=== PATIENT | male | born 1975 | race African-American/Black ===

== ENCOUNTER 2018-04-20 22:37 | Inpatient (IN) | payer OTHER ==
[~2018-04-20] VITALS: Ht 188 cm; Wt 121.0 kg
[2018-04-20] MEDS ORDERED: SODIUM CHLORIDE 0.9% 1L BAG IV* STA (23:08)
[2018-04-21] MEDS ORDERED: PIPER-TAZO 3.375 GM IV (PMX) 100 ML IVPB ONE (02:00)
--- NOTE | 2018-04-21 03:29 | ERD ---
ER Documentation Chief Complaint Chief Complaint Bilateral leg swelling, insect bites to L lower Leg and L hip X 1 wk ago HPI Is a 42-year-old male with bilateral lower extremity swelling to the midcalf that started last week and is getting progressively worse. He says started off his antiplatelet scratch and get progressively more swollen. Denies any fevers or chills. Denies any nausea vomiting. Denies any other current issues. ROS All systems reviewed and are negative except as per history of present illness. Allergies Allergies: Coded Allergies: No Known Allergy (Unverified , 04/20/18) PMhx/Soc Medical and Surgical Hx: pt denies Medical Hx, pt denies Surgical Hx Hx Alcohol Use: No Hx Substance Use: No Hx Tobacco Use: No Smoking Status: Never smoker Physical Exam Vitals Vital Signs Date Temp Pulse Resp B/P (MAP) Pulse Ox O2 O2 Flow FiO2 Time Delivery Rate 04/21/18 97.7 75 16 141/95 100 Room Air 02:59 (110) 04/21/18 97.7 83 15 147/99 100 Room Air 01:49 (115) 04/21/18 97.7 84 15 129/80 100 Room Air 01:05 (96) 04/21/18 97.7 85 18 143/97 100 Room Air 00:33 (112) 04/20/18 97.7 95 18 152/84 100 Room Air 23:28 (106) 04/20/18 97.7 106 18 152/68 97 22:40 (96) Physical Exam Const: No acute distress Head: Atraumatic Eyes: Normal Conjunctiva ENT: Normal External Ears, Nose and Mouth. Neck: Full range of motion. No meningismus. Resp: Clear to auscultation bilaterally Cardio: Regular rate and rhythm, no murmurs Abd: Soft, non tender, non distended. Normal bowel sounds Skin: Erythema and induration noted to the midcalf bilaterally. No flu ctuance. Back: No midline or flank tenderness Ext: No cyanosis, or edema Neur: Awake and alert Psych: Normal Mood and Affect Result Diagram: 04/20/18 6899 04/20/18 1771 Results 24 hrs Laboratory Tests Test 04/20/18 23:25 04/21/18 01:05 White Blood Count 8.1 10^3/ul Red Blood Count 4.41 10^6/ul Hemoglobin 11.8 g/dl Hematocrit 36.8 % Mean Corpuscular Volume 83.4 fl Mean Corpuscular Hemoglobin 26.8 pg Mean Corpuscular Hemoglobin Concent 32.1 g/dl Red Cell Distribution Width 14.3 % Platelet Count 299 10^3/UL Mean Platelet Volume 9.5 fl Immature Granulocytes % 0.100 % Neutrophils % 62.6 % Lymphocytes % 27.2 % Monocytes % 7.1 % Eosinophils % 2.1 % Basophils % 0.9 % Nucleated Red Blood Cells % 0.0 /100WBC Immature Granulocytes # 0.010 10^3/ul Neutrophils # 5.1 10^3/ul Lymphocytes # 2.2 10^3/ul Monocytes # 0.6 10^3/ul Eosinophils # 0.2 10^3/ul Basophils # 0.1 10^3/ul Nucleated Red Blood Cells # 0.0 10^3/ul Prothrombin Time 12.0 Sec Prothrombin Time Ratio 0.9 INR International Normalized Ratio 0.88 Activated Partial Thromboplast Time 30.3 Sec Sodium Level 141 mmol/L Potassium Level 3.9 mmol/L Chloride Level 104 mmol/L Carbon Dioxide Level 27 mmol/L Anion Gap 10 Blood Urea Nitrogen 19 mg/dl Creatinine 1.14 mg/dl Est Glomerular Filtrat Rate mL/min > 60 mL/min Glucose Level 108 mg/dl Calcium Level 9.3 mg/dl Total Bilirubin 0.1 mg/dl Direct Bilirubin 0.00 mg/dl Indirect Bilirubin 0.1 mg/dl Aspartate Amino Transf (AST/SGOT) 41 IU/L Alanine Aminotransferase (ALT/SGPT) 37 IU/L Alkaline Phosphatase 108 IU/L Troponin I < 0.012 ng/ml Total Protein 7.9 g/dl Albumin 4.1 g/dl Globulin 3.80 g/dl Albumin/Globulin Ratio 1.07 Lactic Acid Level 0.8 mmol/L Current Medications Medications Dose Sig/Mis Start Time Status Last (Trade) Ordered Route PRN Stop Time Admin Dose Reason Admin Sodium 3,600 ml BOLUS OVER 2 04/20/18 DC 04/20/18 Chloride HOURS STAT 23:08 04/20/18 23:28 (NS) IV* 23:09 Piperacillin 100 ml @ ONCE ONCE 04/21/18 DC 04/21/18 Sod/ 200 mls/hr IVPB 02:00 04/21/18 01:54 Tazobactam 02:29 Sod Procedures/MDM EKG: Rate/Rhythm: [Normal Sinus Rhythm] QRS, ST, T-waves: [No changes consistent w/ acute ischemia] Impression: [No evidence of ischemia or arrhythmia] Chest X-ray 1V Interpreted by me: Soft Tissue: No acute abnormalities Bones: No acute abnormalities Mediastinum/Cardiac Silhouette/Lungs: [No acute abnormalities] Medical decision makin-year-old male bilateral lower extremity cellulitis with no evidence of sepsis. Started on broad-spectrum antibiotics post cultures. Patient will be admitted to hospitalist for further evaluation management. Departure Diagnosis: Primary Impression: Bilateral lower leg cellulitis Condition: LORENA Simms Apr 21, 2018 03:29
[2018-04-21 03:30] VITALS: BP 134/82; PULSE 75; RESP 18
[2018-04-21 03:33] VITALS: Ht 188 cm; Wt 121.0 kg
[2018-04-21] MEDS ORDERED: ONDANSETRON 4 MG INJ IV PRN (04:30)
[2018-04-21] MEDS ORDERED: ACETAMINOPHEN 325 MG TAB PO PRN (04:30)
[2018-04-21] MEDS ORDERED: NACL 0.9% 3 ML SYG IV SCH (04:30)
[2018-04-21] MEDS ORDERED: ALBUTEROL/IPRATROPIUM (NEB) 3 ML AMP HHN PRN (04:30)
--- NOTE | 2018-04-21 06:03 | HP ---
Date/Time of Note Date/Time of Note DATE: 04/21/18 TIME: 05:58 Assessment/Plan VTE Prophylaxis Pharmacological prophylaxis: heparin Lines/Catheters IV Catheter Type (from Nrsg): Saline Lock Assessment/Plan Assessment/Plan 42-year-old obese male with no significant past medical history presented with bilateral lower extremity pitting edema, with possible overlying erysipelas PLAN Obtain a 2D echo to workup for CHF We will diurese Will start him on a Bactrim for possible bilateral lower extremity erysipelas. Skin was very warm to touch with few minimal superficial lesions on the medial aspect of the right leg Result Diagram: 04/21/18 0426 04/21/18 0426 Results 24hrs Laboratory Tests Test 04/20/18 23:25 04/21/18 01:05 04/21/18 02:42 04/21/18 04:26 White Blood Count 8.1 6.2 # Red Blood Count 4.41 L 4.05 L Hemoglobin 11.8 L 11.3 L Hematocrit 36.8 L 34.6 L Mean Corpuscular Volume 83.4 85.4 Mean Corpuscular 26.8 L 27.9 L Hemoglobin Mean Corpuscular 32.1 32.7 Hemoglobin Concent Red Cell Distribution 14.3 14.5 Width Platelet Count 299 253 Mean Platelet Volume 9.5 9.5 Immature Granulocytes % 0.100 0.300 Neutrophils % 62.6 57.1 Lymphocytes % 27.2 30.7 Monocytes % 7.1 8.1 Eosinophils % 2.1 3.2 Basophils % 0.9 0.6 Nucleated Red Blood 0.0 0.0 Cells % Immature Granulocytes # 0.010 0.020 Neutrophils # 5.1 3.5 Lymphocytes # 2.2 1.9 Monocytes # 0.6 0.5 Eosinophils # 0.2 0.2 Basophils # 0.1 0.0 Nucleated Red Blood 0.0 0.0 Cells # Prothrombin Time 12.0 Prothrombin Time Ratio 0.9 INR International 0.88 Normalized Ratio Activated 30.3 Partial Thromboplast Time Sodium Level 141 140 Potassium Level 3.9 4.0 Chloride Level 104 111 H Carbon Dioxide Level 27 24 Anion Gap 10 5 Blood Urea Nitrogen 19 15 Creatinine 1.14 0.94 Est Glomerular Filtrat > 60 > 60 Rate mL/min Glucose Level 108 88 Calcium Level 9.3 8.6 Total Bilirubin 0.1 L 0.1 L Direct Bilirubin 0.00 0.00 Indirect Bilirubin 0.1 0.1 Aspartate Amino 41 36 Transf (AST/SGOT) Alanine 37 30 Aminotransferase (ALT/SG PT) Alkaline Phosphatase 108 104 Troponin I < 0.012 < 0.012 Total Protein 7.9 6.6 # Albumin 4.1 3.4 Globulin 3.80 H 3.20 Albumin/Globulin Ratio 1.07 1.06 Lactic Acid Level 0.8 0.9 Hemoglobin A1c 5.7 Phosphorus Level 4.3 Magnesium Level 2.2 Creatine Kinase 703 H Creatine Kinase Index 0.2 Creatinine Kinase MB 1.33 (Mass) Triglycerides Level 135 Cholesterol Level 149 LDL Cholesterol, 89 Calculated HDL Cholesterol 33 Cholesterol/HDL Ratio 4.5 Thyroid Stimulating Pending Hormone (TSH) HPI/ROS Admit Date/Time Admit Date/Time Apr 21, 2018 at 01:45 Hx of Present Illness This is a 42-year-old male with no significant past medical history who presented to ER complaining of bilateral lower extremity swelling. Symptom has been progressively getting worse. He said his legs have been warm to touch. He also stated he may have been bitten by a spider. Based on his mother's recommendation, patient has been taking [id number]-[id number] "water pill". He said he did not need prescription and said he paid 4.99 for 50 pills. The medication did increase his urine output. He denies chest pain, reported occasional shortness of breath on exertion. Denied fever/chills, abdominal pain. PMH/Family/Social Past Medical History Medical History: other (See HPI) Medications Current Medications IV Flush (NS 3 ml) 3 ml PER PROTOCOL IV ; Start 04/21/18 at 04:30 Ondansetron HCl (Zofran Inj) 4 mg Q6H PRN IV NAUSEA/VOMITING; Start 04/21/18 at 04:30 Acetaminophen (Tylenol Tab) 650 mg Q6H PRN PO .PAIN 1-3 OR TEMP; Start 04/21/18 at 04:30 Enoxaparin Sodium (Lovenox) 40 mg DAILY SC ; Start 04/21/18 at 09:00 Albuterol/ Ipratropium (Duoneb) 3 ml Q2H RESP THERAPY PRN HHN SHORTNESS OF BREATH; Start 04/21/18 at 04:30 Trimethoprim/ Sulfamethoxazole (Bactrim (Ds)) 1 tab BID PO ; Start 04/21/18 at 09:00; Stop 04/26/18 at 09:00 Furosemide (Lasix) 40 mg DAILY PO ; Start 04/21/18 at 09:00 Coded Allergies: No Known Allergy (Unverified , 04/20/18) Past Surgical History Past Surgical Hx: other (See HPI) Family History Significant Family History: no pertinent family hx Social History Alcohol Use: none Smoking Status: Current every day smoker Drug Use: none Exam/Review of Systems Vital Signs Vitals Vital Signs Date Temp Pulse Resp B/P (MAP) Pulse Ox O2 O2 Flow FiO2 Time Delivery Rate 04/21/18 98.7 75 18 134/82 99 Room Air 03:30 (99) Exam Constitutional: alert, oriented, well developed Head: normocephalic, atraumatic Eyes: EOMI, PERRL Respiratory: clear to auscultation, normal air movement Cardiovascular: regular rate and rhythm, nl pulses Gastrointestinal: soft, non-tender Extremities: other (Bilateral lower extremity pitting edema. Skin is warm to touch. A few superficial lesions on the medial aspect of the right calf) LORENA BECERRIL MD Apr 21, 2018 06:03
[2018-04-21 07:25] VITALS: BP 133/74; PULSE 76; RESP 18
[2018-04-21] MEDS ORDERED: FUROSEMIDE 40 MG TAB PO SCH (09:00)
[2018-04-21] MEDS ORDERED: TRIMETHOPRIM/SULFAMETHOX (DS) TAB PO SCH (09:00)
[2018-04-21] MEDS ORDERED: ENOXAPARIN 40 MG/0.4 ML SYG SC SCH (09:00)
[2018-04-21 14:01] VITALS: BP 138/84; PULSE 77; RESP 18
--- NOTE | 2018-04-21 15:31 | PDOCDIS ---
Discharge Instructions CONDITION [id number] Patient Condition: [id number] Stable OTHER ORDERS: Other Orders: The patient being transferred to [facility] for further evaluation. ELLIOT LEIVA NP Apr 21, 2018 15:31
--- NOTE | 2018-04-21 17:58 | DS ---
Date/Time of Note Date/Time of Note DATE: 04/21/18 TIME: 17:54 Discharge Summary Admission/Discharge Info Admit Date/Time Apr 21, 2018 at 01:45 Discharge Date/Time Discharge Diagnosis 1. Erysipelas. 2. Normocytic anemia. 3. Reported "bug bite." 4. Obesity. 5. Nicotine use. Patient Condition: Stable Procedures B/L Venous Doppler Study IMPRESSION: No sonographic evidence for deep venous thrombosis. CXR IMPRESSION: No evidence for acute intrathoracic pathology. 2D Echocardiogram Hx of Present Illness This is a 42-year-old male with comorbidities including obesity, who presented to the emergency department complaining of bilateral lower extremity edema. The patient also verbalized some "bug bites." The patient also verbalized that his roommates possibly had "typhus" from tick bite. The patient tried using shfi-unu-akguakl "water pills" with minimal improvement in the swelling. The patient denied any fevers or chills. The patient was admitted to inpatient setting for further treatment and evaluation. Hospital Course The patient was admitted to inpatient setting. The patient was started on antimicrobial therapy including coverage for MRSA for possible underlying erysipelas. The patient was started on diuretic therapy for his underlying bilateral lower extremity edema. The patient's bilateral lower extremity venous Doppler study was negative for any DVT. The patient had a 2D echocardiogram done to evaluate for any underlying cardiac involvement. The results of this is pending at this time. Nevertheless, the patient's BNP was within normal limits. The patient was also noticed to have normocytic anemia. The patient's H&H remained stable. Etiology of the patient's anemia remains unclear. The patient is also morbidly obese with BMI of more than 34 kg/m. The patient's fasting lipid panel was satisfactory. The patient's hemoglobin A1c was 5.7 indicating prediabetes. The patient is also a current nicotine user. The patient was advised on nicotine cessation. The patient is capitated to [facility]. Therefore, the patient will be transferred to [facility] for further management. Signout was given to Dr. Bartlett at [facility] before the patient was transferred. The patient is stable to be transferred. The patient was seen in collaboration with Dr. Salazar. Home Meds No Active Prescriptions or Reported Meds Primary Care Provider The patient being transferred to [facility] for further managment. Time spent on discharge: > 30 minutes Pending Labs Laboratory Tests Test 04/20/18 23:25 04/21/18 01:05 04/21/18 02:42 04/21/18 04:23 White Blood 8.1 Count 10^3/ul (4.8-10 .8) Red Blood 4.41 Count 10^6/ul (4.70-6 .10) Hemoglobin 11.8 g/dl (14.0-18.0 ) Hematocrit 36.8 % (42.0-52.0) Mean 83.4 Corpuscular fl (82.0-101.0) Volume Mean 26.8 Corpuscular pg (29.0-33.0) Hemoglobin Mean 32.1 Corpuscular g/dl (32.0-37.0 Hemoglobin Conc ) ent Red Cell 14.3 Distribution % (11.5-14.5) Width Platelet Count 299 10^3/UL (140-41 5) Mean Platelet 9.5 Volume fl (7.4-10.4) Immature 0.100 Granulocytes % % (0.001-0.429) Neutrophils % 62.6 % (39.0-77.0) Lymphocytes % 27.2 % (15.0-51.0) Monocytes % 7.1 % (0.0-11.0) Eosinophils % 2.1 % (0.0-7.0) Basophils % 0.9 % (0.0-2.0) Nucleated Red 0.0 Blood Cells % /100WBC (0.0-0. 0) Immature 0.010 Granulocytes # 10^3/ul (0.0-0. 031) Neutrophils # 5.1 10^3/ul (1.6-7. 5) Lymphocytes # 2.2 10^3/ul (0.8-2. 9) Monocytes # 0.6 10^3/ul (0.3-0. 9) Eosinophils # 0.2 10^3/ul (0.0-0. 5) Basophils # 0.1 10^3/ul (0.0-0. 1) Nucleated Red 0.0 Blood Cells # 10^3/ul (0.0-0. 0) Prothrombin 12.0 Time Sec (11.9-14.9) Prothrombin 0.9 Time Ratio INR 0.88 International Normalized Rati o Activated 30.3 Partial Thrombo Sec (23.0-35.0) plast Time Sodium Level 141 mmol/L (135-144 ) Potassium 3.9 Level mmol/L (3.5-5.1 ) Chloride Level 104 mmol/L (97-110) Carbon Dioxide 27 Level mmol/L (21-31) Anion Gap 10 (5-13) Blood Urea 19 mg/dl (7-20) Nitrogen Creatinine 1.14 mg/dl (0.61-1.2 4) Est Glomerular > 60 Filtrat mL/min (>60) Rate mL/min Glucose Level 108 mg/dl (70-220) Calcium Level 9.3 mg/dl (8.4-10.2 ) Total 0.1 Bilirubin mg/dl (0.2-1.3) Direct 0.00 Bilirubin mg/dl (0.00-0.2 0) Indirect 0.1 Bilirubin mg/dl (0-1.1) Aspartate Amino 41 IU/L (15-46) Transf (AST/SGO T) Alanine 37 IU/L (13-69) Aminotransferas e (ALT/SGPT) Alkaline 108 Phosphatase IU/L (42-121) Troponin I < 0.012 ng/ml (0.000-0. 120) Total Protein 7.9 g/dl (6.1-8.1) Albumin 4.1 g/dl (3.3-4.9) Globulin 3.80 g/dl (1.3-3.2) Albumin/Globuli 1.07 n Ratio Lactic Acid 0.8 0.9 Level mmol/L (0.5-2. mmol/L (0.5-2. 0) 0) B-Type 24 Natriuretic PG/ML (0-125) Peptide Test 04/21/18 04:26 04/21/18 08:25 White Blood 6.2 Count 10^3/ul (4.8-10 .8) Red Blood 4.05 Count 10^6/ul (4.70-6 .10) Hemoglobin 11.3 g/dl (14.0-18.0 ) Hematocrit 34.6 % (42.0-52.0) Mean 85.4 Corpuscular fl (82.0-101.0) Volume Mean 27.9 Corpuscular pg (29.0-33.0) Hemoglobin Mean 32.7 Corpuscular g/dl (32.0-37.0 Hemoglobin Conc ) ent Red Cell 14.5 Distribution % (11.5-14.5) Width Platelet Count 253 10^3/UL (140-41 5) Mean Platelet 9.5 Volume fl (7.4-10.4) Immature 0.300 Granulocytes % % (0.001-0.429) Neutrophils % 57.1 % (39.0-77.0) Lymphocytes % 30.7 % (15.0-51.0) Monocytes % 8.1 % (0.0-11.0) Eosinophils % 3.2 % (0.0-7.0) Basophils % 0.6 % (0.0-2.0) Nucleated Red 0.0 Blood Cells % /100WBC (0.0-0. 0) Immature 0.020 Granulocytes # 10^3/ul (0.0-0. 031) Neutrophils # 3.5 10^3/ul (1.6-7. 5) Lymphocytes # 1.9 10^3/ul (0.8-2. 9) Monocytes # 0.5 10^3/ul (0.3-0. 9) Eosinophils # 0.2 10^3/ul (0.0-0. 5) Basophils # 0.0 10^3/ul (0.0-0. 1) Nucleated Red 0.0 Blood Cells # 10^3/ul (0.0-0. 0) Sodium Level 140 mmol/L (135-144 ) Potassium 4.0 Level mmol/L (3.5-5.1 ) Chloride Level 111 mmol/L (97-110) Carbon Dioxide 24 Level mmol/L (21-31) Anion Gap 5 (5-13) Blood Urea 15 mg/dl (7-20) Nitrogen Creatinine 0.94 mg/dl (0.61-1.2 4) Est Glomerular > 60 Filtrat mL/min (>60) Rate mL/min Glucose Level 88 mg/dl (70-220) Hemoglobin A1c 5.7 % (0-5.9) Calcium Level 8.6 mg/dl (8.4-10.2 ) Phosphorus 4.3 Level mg/dl (2.5-4.9) Magnesium 2.2 Level mg/dl (1.7-2.5) Total 0.1 Bilirubin mg/dl (0.2-1.3) Direct 0.00 Bilirubin mg/dl (0.00-0.2 0) Indirect 0.1 Bilirubin mg/dl (0-1.1) Aspartate Amino 36 IU/L (15-46) Transf (AST/SGO T) Alanine 30 IU/L (13-69) Aminotransferas e (ALT/SGPT) Alkaline 104 Phosphatase IU/L (42-121) Creatine 703 652 Kinase IU/L (23-200) IU/L (23-200) Creatine Kinase 0.2 0.2 Index Creatinine 1.33 1.21 Kinase MB ng/ml (0.0-2.4) ng/ml (0.0-2.4 (Mass) ) Troponin I < 0.012 < 0.012 ng/ml (0.000-0. ng/ml (0.000-0 120) .120) Total Protein 6.6 g/dl (6.1-8.1) Albumin 3.4 g/dl (3.3-4.9) Globulin 3.20 g/dl (1.3-3.2) Albumin/Globuli 1.06 n Ratio Triglycerides 135 Level mg/dl (0-149) Cholesterol 149 Level mg/dl (100-200) LDL 89 mg/dl Cholesterol, Calculated HDL 33 Cholesterol mg/dl (27-67) Cholesterol/HDL 4.5 RATIO Ratio Thyroid 0.846 Stimulating MIU/L (0.465-4. Hormone (TSH) 680) ELLIOT LEIVA NP Apr 21, 2018 17:58
--- NOTE | 2018-04-21 18:34 | RADRPT ---
Echocardiogram Report Patient Name: LIMA YUSUFPatient ID: [id number] : 1975 (42y 5m)Study Date: 04/21/2018 8:16:52 AM Gender: MAccession #: [id number] Tech: Jin Fischer [facility] Location: [id number][address] Ref.Physician: LORENA BECERRIL Height(Cm): BSA: Weight(Kg): Quality: AdequateAccount #: Procedures: Echocardiographic Report: Transthoracic echocardiogram with complete 2D, M-Mode, and doppler examination. Indications: Evaluate Left Ventricular function. Measurements: 2D/M Mode Doppler Measurement Value Normal Range Measurement Value Normal Range LVIDd 2D 4.5 [ 4.2 - 5.8 ] cm AV Peak Angel 1.3 [ 100.0 - 170.0 ] cm/sec LVIDs 2D 2.7 [ 2.5 - 4.0 ] cm AV Peak PG 7.0 [ 2.0 - 9.0 ] mmHg LVPWd 2D 0.8 [ 0.6 - 1.0 ] cm LVOT Peak Angel 1.0 [ 70.0 - 110.0 ] cm/sec IVSd 2D 1.4 [ 0.6 - 1.0 ] cm LVOT Peak PG 4.0 [ 2.0 - 6.0 ] mmHg AoR Diam 2D 3.1 [ 2.6 - 3.4 ] cm MV E Peak Angel 0.8 [ 60.0 - 130.0 ] cm/sec EDV 2D 93.9 [ 62.0 - 150.0 ] ml MV A Peak Angel 0.7 [ 100.0 - 120.0 ] cm/sec ESV 2D 26.0 [ 21.0 - 61.0 ] ml MV E/A 1.2 [ 0.8 - 1.5 ] ratio EF 2D 72.3 [ 52.0 - 72.0 ] percent MV Decel Time 194 [ 104 - 258 ] msec LA Dimen 2D 3.2 [ 3.0 - 4.0 ] cm Lat E` Angel 0.1 [ 10.0 - 15.0 ] cm/sec Lateral E/E` 6.7 [ 1.0 - 2.0 ] ratio Med E` Angel 0.1 cm/sec MV E/A 1.2 [ 0.8 - 1.5 ] ratio RA Pressure 10.0 mmHg Findings: Left Ventricle: Normal left ventricular systolic function. Normal left ventricular cavity size. Moderate asymmetric septal hypertrophy. Ejection fraction is visually estimated at 60 %. Tissue Doppler/Mitral Doppler indices are consistent with impaired relaxation (Stage I diastolic dysfunction). Right Ventricle: Normal right ventricular size. Normal right ventricular systolic function. Left Atrium: The left atrium is normal in size. Right Atrium: The right atrium is normal in size. Mitral Valve: Mild mitral leaflet calcification. Mild mitral annular calcification. Trace mitral regurgitation. Aortic Valve: No significant aortic stenosis or insufficiency. Aortic cusps appear mildly calcified. Tricuspid Valve: Normal appearance of the tricuspid valve. Unable to obtain RVSP due to minimal presence of tricuspid regurgitation. Pulmonic Valve: Pulmonic valve not well visualized. Pericardium: Normal pericardium with no significant pericardial effusion. Aorta: Normal aortic root. IVC: Normal size and normal respiratory collapse consistent with normal right atrial pressure. Conclusions: Normal left ventricular systolic function. Normal left ventricular cavity size. Moderate asymmetric septal hypertrophy. Ejection fraction is visually estimated at 60 %. Tissue Doppler/Mitral Doppler indices are consistent with impaired relaxation (Stage I diastolic dysfunction). Mild mitral leaflet calcification. Mild mitral annular calcification. Trace mitral regurgitation. No significant aortic stenosis or insufficiency. Aortic cusps appear mildly calcified. Normal appearance of the tricuspid valve. Unable to obtain RVSP due to minimal presence of tricuspid regurgitation. Electronically Signed By: Cody Centeno 2018-04-21 18:33:55 PST
[2018-04-21 19:29] VITALS: BP 129/77; PULSE 72; RESP 18
== END 2018-04-21 20:25 | disposition short-term general hospital (02) | DRG 603 ==
LOC: E/R 22:37 → 5EC 04-21 01:45
PROVIDERS: ADMIT Internal Medicine; ATTEND Internal Medicine
DX: A46 Erysipelas (principal); D64.9 Anemia, unspecified; S80.862A Insect bite (nonvenomous), left lower leg, initial encounter; S80.861A Insect bite (nonvenomous), right lower leg, initial encounter; E66.9 Obesity, unspecified; F17.200 Nicotine dependence, unspecified, uncomplicated; Z68.34 Body mass index [BMI] 34.0-34.9, adult
CPT/HCPCS: 36415; 71045; 80053; 80061; 82550; 82553; 83036; 83605; 83735; 83880; 84100; 84443; 84484; 85025; 85610; 85730; 87040; 93005; 93306; 93970; J1650; J2543; J7030

== ENCOUNTER 2018-06-07 18:09 | Emergency (ER) | payer OTHER ==
[~2018-06-07] VITALS: Ht 182.9 cm; Wt 120.0 kg
[2018-06-07 18:37] VITALS: Ht 182.9 cm; Wt 120.0 kg
[2018-06-07] MEDS ORDERED: IBUPROFEN 600 MG TAB PO ONE (19:00)
[2018-06-07] MEDS ORDERED: CEFTRIAXONE 1 GM INJ IM ONE (19:00)
[2018-06-07] MEDS ORDERED: LIDOCAINE 1% (MDV) 20 ML INJ SC ONE (19:00)
[2018-06-07] MEDS ORDERED: TRIMETHOPRIM/SULFAMETHOX (DS) TAB PO ONE (19:00)
[2018-06-07] MEDS ORDERED: CEPH-443 PO (20:09)
[2018-06-07] MEDS ORDERED: SULF1TAB31 PO (20:09)
[2018-06-07] MEDS ORDERED: IBUP-1542 PO (20:09)
--- NOTE | 2018-06-07 20:14 | ERD ---
ER Documentation Chief Complaint Chief Complaint states left hand swelling x 2days. denies trauma HPI 42-year-old male presents with some swelling and pain of the left fifth digit over the last 2 days. He denies any history of trauma. He has restricted range of motion due to pain. He denies fevers but denies any puncture wound, or inciting events. Pain may have started on the lateral aspect of his distal digit. ROS All systems reviewed and are negative except as per history of present illness. Medications Home Meds Active Scripts Ibuprofen* (Motrin*) 600 Mg Tab, 600 MG PO Q6, #20 TAB Prov:PAT SWAIN MD 06/07/18 Sulfamethoxazole/Trimethoprim* (Bactrim Ds* Tablet) 1 Each Tablet, 1 TAB PO BID for 7 Days, #14 TAB Prov:PAT SWAIN MD 06/07/18 Cephalexin* (Keflex*) 500 Mg Capsule, 500 MG PO QID for 7 Days, CAP Prov:PAT SWAIN MD 06/07/18 Allergies Allergies: Coded Allergies: No Known Allergy (Unverified , 06/07/18) PMhx/Soc Medical and Surgical Hx: pt denies Medical Hx, pt denies Surgical Hx History of Surgery: No Anesthesia Reaction: No Hx Neurological Disorder: No Hx Respiratory Disorders: No Hx Cardiac Disorders: No Hx Psychiatric Problems: Yes (Anxiety) Hx Miscellaneous Medical Probl: No Hx Alcohol Use: Yes (previous drinker ) Hx Substance Use: Yes (marijuana) Hx Tobacco Use: Yes Smoking Status: Current every day smoker FmHx Family History: No diabetes, No coronary disease, No other Physical Exam Vitals Vital Signs Date Temp Pulse Resp B/P (MAP) Pulse Ox O2 O2 Flow FiO2 Time Delivery Rate 06/07/18 97.2 87 18 138/76 100 18:37 (96) Physical Exam Const: No acute distress Head: Atraumatic Eyes: Normal Conjunctiva ENT: Normal External Ears, Nose and Mouth. Neck: Full range of motion. No meningismus. Resp: Clear to auscultation bilaterally Cardio: Regular rate and rhythm, no murmurs Abd: Soft, non tender, non distended. Normal bowel sounds Skin: No petechiae or rashes Back: No midline or flank tenderness Ext: No cyanosis, or edema. Left fifth digit shows some mild swelling and tenderness extending from the lateral pad midway approximately to the PIP joint. No appreciable [place] sign or proximal tendon tenderness. There is mild restricted range of motion likely due to pain. Cap refill is less than 2 seconds. Patient does have dry hands but no appreciable puncture wound or laceration or entry wound. Neur: Awake and alert Psych: Normal Mood and Affect Results 24 hrs Current Medications Medications Dose Sig/Mis Start Time Status Last (Trade) Ordered Route PRN Stop Time Admin Dose Reason Admin Ceftriaxone 1 gm ONCE ONCE 06/07/18 DC 06/07/18 Sodium IM 19:00 19:05 (Rocephin) 06/07/18 19:01 Lidocaine 20 ml ONCE ONCE 06/07/18 DC 06/07/18 (Xylocaine SC 19:00 19:04 1% (Mdv) 20 06/07/18 19:01 ml) Ibuprofen 600 mg ONCE ONCE 06/07/18 DC 06/07/18 (Motrin) PO 19:00 19:04 06/07/18 19:01 1 tab ONCE ONCE 06/07/18 DC 06/07/18 Trimethoprim/ PO 19:00 19:04 06/07/18 19:01 Sulfamethoxaz ole (Bactrim (Ds)) Procedures/MDM X-ray left pinky finger 2V Interpreted by me: Bones: No fracture Joints: No dislocation Foreign body: None. Impression-normal left pinky finger x-ray Since with some pain, redness and swelling in his distal left fifth digit. Patient does admit to biting his nails. Infection may have started with a paronychia but there is no current abscess identified to be drained today. He was given Rocephin 1 g IM and will be treated with Bactrim and Keflex, recommendations for warm soaks and close follow-up in recheck in 1 to 2 days for worsening redness, swelling to evaluate for incision and drainage. He should return sooner for redness or swelling which spreads significantly of his finger to his hand or arm. Patient will be referred to local hand resources although he is advised to return for worsening symptoms for reevaluation if he is unable to procure an appointment with a hand specialist. Current signs or symptoms do not suggest abscess, osteomyelitis, tenosynovitis, sepsis. Departure Diagnosis: Primary Impression: Cellulitis Site of cellulitis: extremity Site of cellulitis of extremity: finger Laterality: left Qualified Codes: L03.012 - Cellulitis of left finger Condition: Stable Patient Instructions: Cellulitis Referrals: [facility] Additional Instructions: Recommend warm soaks at home. Recheck in approximately 2 days for evaluation for incision and drainage. Recheck sooner for worsening redness, fevers, swelling or spreading of symptoms upper arm. Recommend to see specialist for persistent pain this week or return for worsening symptoms. PAT SWAIN MD Jun 07, 2018 20:14
[2018-06-07 20:20] VITALS: BP 146/101; PULSE 86; RESP 19
== END 2018-06-07 20:20 | disposition home or self-care (01) ==
LOC: FTE 18:09
DX: L03.012 Cellulitis of left finger (principal); F17.210 Nicotine dependence, cigarettes, uncomplicated
CPT/HCPCS: 73140; 96372; J0696; Z7502; Z7610